=== PATIENT | male | born 1970 ===

== ENCOUNTER 2020-08-30 16:20 | Emergency (ER) | payer OTHER ==
[~2020-08-30] VITALS: Ht 185.4 cm; Wt 101.6 kg
[2020-08-30] MEDS ORDERED: LEVO-T200 MCG (16:44)
[2020-08-30] MEDS ORDERED: CANDESARTAN CILE4 MG PO (16:44)
[2020-08-30] MEDS ORDERED: ORPHENADRINE C100 MG PO (22:18)
[2020-08-30] MEDS ORDERED: KETO10TA2 PO (22:18)
== END 2020-08-30 22:29 | disposition home or self-care (01) ==
LOC: ER 16:20
DX: R07.89 Other chest pain (principal); M79.622 Pain in left upper arm